=== PATIENT | male | born 1980 | race Caucasian/White ===

== ENCOUNTER 2022-03-03 02:38 | Emergency (ER) | payer OTHER ==
[~2022-03-03] VITALS: Ht 175.3 cm; Wt 90.7 kg
--- NOTE | 2022-03-03 02:57 | NUR ---
pt ambulatory to room 4a states he hurt his neck at a music concert.
--- NOTE | 2022-03-03 03:22 | NUR ---
Dr. Quiroz at bedside for MSE.
[2022-03-03] MEDS ORDERED: OXYCODONE/APAP 5-325 MG TABLET PO ONE (03:30)
[2022-03-03] MEDS ORDERED: OXYCODONE/APAP 5-325 MG TABLET ONE (03:31)
[2022-03-03] MEDS ORDERED: OXYC-128 PO (04:23)
[2022-03-03 04:35] VITALS: BP 140/75
--- NOTE | 2022-03-03 04:35 | NUR ---
Patient discharged to home in stable condition. Written and verbal after care instructions given. Patient verbalizes understanding of instructions. Stressed follow up or return to ER for worsening s/s.
== END 2022-03-03 04:36 | disposition home or self-care (01) ==
LOC: ER 02:41
DX: S16.1XXA Strain of muscle, fascia and tendon at neck level, initial encounter (principal); W03.XXXA Other fall on same level due to collision with another person, initial encounter; Y92.252 Music hall as the place of occurrence of the external cause
CPT/HCPCS: 72050; A4663

== ENCOUNTER 2022-03-12 01:17 | Emergency (ER) | payer OTHER ==
[~2022-03-12] VITALS: Ht 170.2 cm; Wt 89.8 kg
[~2022-03-12 01:17] MED LIST: OXYC-128 PO
--- NOTE | 2022-03-12 03:55 | NUR ---
Placed in 5A
[2022-03-12] MEDS ORDERED: IBUPROFEN 800 MG TABLET PO ONE (04:15)
[2022-03-12] MEDS ORDERED: CYCLOBENZAPRINE HCL 10 MG TABLET PO ONE (04:15)
[2022-03-12] MEDS ORDERED: CYCLOBENZAPRINE HCL 10 MG TABLET ONE (04:32)
[2022-03-12] MEDS ORDERED: IBUPROFEN 800 MG TABLET ONE (04:32)
[2022-03-12] MEDS ORDERED: IBUP-1958 PO (04:45)
[2022-03-12] MEDS ORDERED: CYCL5TAB PO (04:45)
--- NOTE | 2022-03-12 04:51 | NUR ---
Patient discharged to home in stable condition. Written and verbal after care instructions given. Patient verbalizes understanding of instructions. Stressed follow up or return to ER for worsening s/s. pt ambulated with steady gait. denies pain. no SOB. no chest pain. AOx 4
[2022-03-12 05:16] VITALS: BP 142/83
== END 2022-03-12 04:58 | disposition home or self-care (01) ==
LOC: ER 01:27
DX: M54.50 Low back pain, unspecified (principal)
CPT/HCPCS: A4663